=== PATIENT | male | born 1965 | race Caucasian/White ===

== ENCOUNTER 2024-10-02 19:52 | Emergency (ER) | payer OTHER ==
[2024-10-02 19:56] VITALS: BP 152/78; PULSE 89; RESP 18; TEMP 98.2; BMI 32.1
== END 2024-10-02 20:35 | disposition home or self-care (01) ==
LOC: JERFT 19:52
DX: Z48.02 Encounter for removal of sutures (principal)
CPT/HCPCS: 99281-25